=== PATIENT | male | born 1970 | race Caucasian/White ===

== ENCOUNTER 2018-02-05 16:53 | Emergency (ER) | payer BC, OTHER ==
[2018-02-05 17:07] VITALS: BP 215/134
--- NOTE | 2018-02-05 17:15 | UC ---
Dizzy HPI HPI Summary: The patient is a 47 y/o M presenting to [facility] c/o dizziness and lightheadedness starting 4 days ago. He had fallen off a skateboard approximately 3 weeks ago where he lost his balance and hit his head on a rock, causing a laceration to his left forehead above eyebrow that has not been stitched. He states that he didn't have any LOC symptoms s/p falling, but he is now having intermittent episodes of feeling off-balance, especially when he moves too quickly such as when he stands or turns. The dizziness is alleviated when he sits or lies down. There is no 'room-spinning' effect noted, and there is no pain associated. He additionally c/o mild left ear ache. He denies CP, sore throat, and runny nose. He took Advil this morning to try to alleviate his symptoms. He notes that he hasn't smoked in 16 days. He does not take any other medications. - History Of Current Complaint Chief Complaint: UCHeadInjury Stated Complaint: DIZZY,EAR PAIN,HEAD INJURY Time Seen by Provider: 02/05/18 17:02 Hx Obtained From: Patient Onset/Duration: Sudden Onset, Lasting Days - 4, Still Present Timing: Minutes Severity Initially: Mild Severity Currently: Mild Pain Intensity: 0 Pain Scale Used: 0-10 Numeric Character: Lightheaded, Dizzy Aggravating Factor(s): Change In Head Position - turning or standing too fast Alleviating Factor(s): Rest, Lying Down Associated Signs And Symptoms: Negative: Chest Pain - Allergies/Home Medications Allergies/Adverse Reactions: Allergies Allergy/AdvReac Type Severity Reaction Status Date / Time No Known Allergies Allergy Verified 02/05/18 17:07 Home Medications: Home Medications Ibuprofen 400 mg PO 02/05/18 [History] PMH/Surg Hx/FS Hx/Imm Hx Other Endocrine History: NEGATIVE: diabetes Other Cardiovascular History: NEGATIVE: HTN - Surgical History Surgical History: None - Family History Known Family History: Positive: Cardiac Disease - father and brother Negative: Diabetes - Social History Alcohol Use: Weekly Substance Use Type: None Smoking Status (MU): Former Smoker Review of Systems Skin: Other - laceration to left forehead above eyebrow from falling three weeks ago ENT: Ear Ache - mild in left ear, Other - NEGATIVE: sore throat, runny nose Cardiovascular: Other - NEGATIVE: chest pain Neurological: Other - dizzy, lightheaded All Other Systems Reviewed And Are Negative: Yes Physical Exam - Summary Physical Exam Summary: General: well-appearing, no pain distress Skin: warm, color reflects adequate perfusion, dry, Healing wound over left forehead, ecchymosis over left orbit Head: normal Eyes: EOMI, MICHEL ENT: normal Neck: supple, nontender Respiratory: CTA, breath sounds present Cardiovascular: RRR Abdomen: soft, nontender Bowel: present Musculoskeletal: normal, strength/ROM intact Neurological: sensory/motor intact, A&O x3 Psychological: affect/mood appropriate Triage Information Reviewed: Yes Vital Signs: Initial Vital Signs Temp 98.2 F 02/05/18 17:03 Pulse 94 02/05/18 17:03 Resp 18 02/05/18 17:03 BP 215/134 02/05/18 17:03 Pulse Ox 100 02/05/18 17:03 Vital Signs Reviewed: Yes - Additional Comments Brittnee Coma Scale: 15 Diagnostics - Radiology Brain CT Xray Interpretation: No Acute Changes - No acute intracranial findings. [facility] physician has reviewed this report. Radiology Interpretation Completed By: Radiologist Dizzy Course/Dx - Course Course Of Treatment: Medications reviewed. Allergies noted. BP noted and advised to follow up with PCP. NO FOCAL NEUROLOGIC DEFICIT. DIZZINESS IS INTERMITTENT. RX MECLIZINE; F/U PMD; REEVAL SOONER IF WORSE. - Differential Dx/Diagnosis Provider Diagnoses: VERTIGO. DIZZINESS. HEAD INJURY. Elevated BP without dx of HTN, Discharge - Sign-Out/Discharge Documenting (check all that apply): Patient Departure - Patient will be discharged home. - Discharge Plan Condition: Stable Disposition: HOME Prescriptions: Meclizine HCl [Motion Sickness Relief] 25 mg PO Q6H PRN #15 tablet PRN Reason: Dizziness Patient Education Materials: Vertigo (ED), Head Injury (ED), Dizziness (ED) Referrals: No Primary Care Phys,NOPCP [Primary Care Provider] - [facility] [Outside] Additional Instructions: FOLLOW UP WITH YOUR DOCTOR IF NOT COMPLETELY IMPROVED. GET RECHECKED FOR ANY WORSENING OF YOUR CONDITION; PAIN, WEAKNESS, NUMBNESS, DIFFICULTY WITH SPEECH OR QUESTIONS OR CONCERNS. Your blood pressure was elevated during todays visit; please follow up with your primary care provider within a week for further evaluation. - Billing Disposition and Condition Condition: STABLE Disposition: Home Attestation Statement Scribe Attestation: This is juwane Arlyn Padilla documenting for attending Dr. Sourav Coates MD. User Type: Provider with Scribe Provider Attestation: The documentation recorded by the scribe accurately reflects the service I personally performed and the decisions made by me.
[2018-02-05] MEDS ORDERED: Meclizine TAB* 12.5 MG PO ONE (17:18)
--- NOTE | 2018-02-05 17:41 | RAD ---
INDICATION: Intracranial injury COMPARISON: None TECHNIQUE: Noncontrast axial source images were acquired from the skull base to the vertex. FINDINGS: Ventricles/sulci: The ventricles and cisterns are normal in size and configuration for age. Brain parenchyma: There is no focal parenchymal finding, evidence of intracranial mass, or intracranial mass effect. Intracranial hemorrhage:None. Extra-axial spaces: There are no abnormal extra axial fluid collections or evidence of extra-axial mass. Calvarium: There is no calvarial fracture or other calvarial abnormality. Scalp: There is a small left frontal scalp hematoma. Paranasal sinuses/mastoid: The paranasal sinuses and mastoid air cells are clear. Other: None. IMPRESSION: NO ACUTE INTRACRANIAL FINDINGS.
== END 2018-02-05 18:19 | disposition home or self-care (01) ==
LOC: UCEAST 16:53
DX: R42 Dizziness and giddiness (principal); S09.90XA Unspecified injury of head, initial encounter; S01.81XA Laceration without foreign body of other part of head, initial encounter; V00.131A Fall from skateboard, initial encounter; Y93.51 Activity, roller skating (inline) and skateboarding; Y92.9 Unspecified place or not applicable; R03.0 Elevated blood-pressure reading, without diagnosis of hypertension; Z82.49 Family history of ischemic heart disease and other diseases of the circulatory system; Z87.891 Personal history of nicotine dependence
CPT/HCPCS: 70450; 99211; A9270-GY; G0463